=== PATIENT | female | born 1945 | race Caucasian/White ===

== ENCOUNTER 2022-03-04 15:32 | Emergency (ER) | payer MEDICARE ==
[2022-03-04 16:07] LABS: BASOPHIL 0.2 % (0-2); EOSINOPHIL 0.3 % (0-7); LYMPHOCYTE 13.9 % (15-48); MCHC 32.5 g/dL (32.0-36.0); MCV 89.3 fL (78.0-100.0); MONOCYTE 3.6 % (0-12); MPV 9.6 fL (6.0-9.5); NEUTROPHIL 81.5 % (41-80); NRBC 0; PLT 239 K/uL (150-400); RBC 4.48 M/uL (4.20-5.40); RDW 12.5 % (11.5-14.0)
[2022-03-04 16:21] LABS: CLARITY HAZY (CLEAR); COLOR ORANGE (YELLOW)
[2022-03-04 16:30] LABS: BACTERIA 1+; URINARY RBC TNTC
[2022-03-04 17:29] LABS: POTASSIUM 4.6 mmol/L (3.5-5.1)
[2022-03-04] MEDS ORDERED: AMOX TR-K CLV1 EAC4 PO (18:46)
== END 2022-03-04 19:10 | disposition home or self-care (01) ==
LOC: FER 15:32
PROVIDERS: Nurse Practitioner Family
DX: N39.0 Urinary tract infection, site not specified (principal); E11.65 Type 2 diabetes mellitus with hyperglycemia; E11.40 Type 2 diabetes mellitus with diabetic neuropathy, unspecified
CPT/HCPCS: 36415; 80048; 81001; 82009; 83036; 85025; 99283